=== PATIENT | female | born 1935 | race African-American/Black ===

== ENCOUNTER 2017-12-13 08:47 | Emergency (ER) | payer MEDICARE, MEDICAID ==
[2017-12-13] MEDS ORDERED: ACETAMINOPHEN 325 MG TABLET PO ONE (08:58)
--- NOTE | 2017-12-13 09:17 | ER Document Report ---
ED General - General Chief Complaint: Leg Pain Stated Complaint: WEAKNESS Time Seen by Provider: 12/13/17 09:17 TRAVEL OUTSIDE OF THE [place] IN LAST 30 DAYS: No - Related Data Allergies/Adverse Reactions: No Known Allergies Allergy (Verified 03/20/15 13:55) Past Medical History - Social History Family History: Reviewed & Not Pertinent - Past Medical History Cardiac Medical History: Reports: Hx Hypercholesterolemia, Hx Hypertension - meds > 5 years Denies: Hx Coronary Artery Disease, Hx Heart Attack Pulmonary Medical History: Denies: Hx Asthma, Hx Bronchitis, Hx COPD, Hx Pneumonia, Hx Tuberculosis Neurological Medical History: Denies: Hx Cerebrovascular Accident, Hx Seizures Endocrine Medical History: Reports: Hx Diabetes Mellitus Type 2 Renal/ Medical History: Reports: Hx End Stage Renal Disease, Hx Hemodialysis GI Medical History: Musculoskeletal Medical History: Denies Hx Arthritis Psychiatric Medical History: Reports: Hx Dementia Denies: Hx Depression Infectious Medical History: Past Surgical History: Reports: Hx Hysterectomy. Denies: Hx Pacemaker - Immunizations Hx Diphtheria, Pertussis, Tetanus Vaccination: Yes - pt unsure Physical Exam - Vital signs Vitals: Temp Pulse Resp BP Pulse Ox 98.3 F 60 18 180/79 H 100 12/13/17 08:47 12/13/17 08:47 12/13/17 08:47 12/13/17 08:47 12/13/17 08:47 Course - Vital Signs Vital signs: Temp Pulse Resp BP Pulse Ox 98.3 F 60 18 180/79 H 100 12/13/17 08:47 12/13/17 08:47 12/13/17 08:47 12/13/17 08:47 12/13/17 08:47 Discharge - Discharge Referrals: JESUS BETANCOURT MD [Primary Care Provider] - Follow up as needed
--- NOTE | 2017-12-13 09:59 | RADIOLOGY REPORT (SQ) ---
EXAM DESCRIPTION: FEMUR RIGHT COMPLETED DATE/TIME: 12/13/2017 9:43 am REASON FOR STUDY: pain; difficulty ambulating COMPARISON: None. NUMBER OF VIEWS: Two views. TECHNIQUE: Two radiographic images acquired of the right femur to include hip and knee in at least o ne projection. LIMITATIONS: None. FINDINGS: MINERALIZATION: Normal. BONES: No acute fracture or dislocation. No worrisome bone lesions. No significant osteophytes. SOFT TISSUES: No obvious swelling or foreign body. OTHER: Vascular calcification IMPRESSION: NEGATIVE STUDY OF THE RIGHT FEMUR. NO EXPLANATION FOR PAIN. TECHNICAL DOCUMENTATION: JOB ID: [id number] Location [facility]- All Rights Reserved Reading location - IP/workstation name: [email or web address]
--- NOTE | 2017-12-13 10:05 | ER Document Report ---
HPI - HPI Patient complains to provider of: Right knee pain Onset: Other Onset/Duration: Sudden, Persistent Quality of pain: No pain Pain Level: Denies Context: Patient presents to the emergency department from [facility] for complaints of right knee pain. An x-ray was done at the [facility] yesterday. A suspected lateral distal femur was noted. The [facility] could not get an Ortho consult so she was sent here. No other c/o. Patient is very pleasant, oriented to name. Associated Symptoms: None Exacerbated by: Walking Relieved by: Denies Similar symptoms previously: No Recently seen / treated by doctor: No - REPRODUCTIVE Reproductive: DENIES: : - DERM Skin Color: Normal Past Medical History - General Information source: Patient, Outside Facility Records Cannot obtain history due to: Dementia - Social History Smoking Status: Unknown if Ever Smoked Cigarette use (# per day): No Frequency of alcohol use: None Drug Abuse: None Lives with: [facility] Family History: Reviewed & Not Pertinent Patient has suicidal ideation: No Patient has homicidal ideation: No - Past Medical History Cardiac Medical History: Reports: Hx Hypercholesterolemia, Hx Hypertension - meds > 5 years Denies: Hx Coronary Artery Disease, Hx Heart Attack Pulmonary Medical History: Denies: Hx Asthma, Hx Bronchitis, Hx COPD, Hx Pneumonia, Hx Tuberculosis Neurological Medical History: Denies: Hx Cerebrovascular Accident, Hx Seizures Endocrine Medical History: Reports: Hx Diabetes Mellitus Type 2 Renal/ Medical History: Reports: Hx End Stage Renal Disease, Hx Hemodialysis. Denies: Hx Peritoneal Dialysis GI Medical History: Musculoskeletal Medical History: Reports Hx Arthritis Psychiatric Medical History: Reports: Hx Dementia Denies: Hx Depression Infectious Medical History: Past Surgical History: Reports: Hx Hysterectomy. Denies: Hx Pacemaker - Immunizations Hx Diphtheria, Pertussis, Tetanus Vaccination: Yes - pt unsure Vertical Provider Document - CONSTITUTIONAL Agree With Documented VS: Yes Exam Limitations: No Limitations General Appearance: WD/WN, No Apparent Distress - INFECTION CONTROL TRAVEL OUTSIDE OF THE [place] IN LAST 30 DAYS: No - HEENT HEENT: Atraumatic, Normocephalic - NECK Neck: Supple - RESPIRATORY Respiratory: No Respiratory Distress - CARDIOVASCULAR Cardiovascular: Regular Rate - MUSCULOSKELETAL/EXTREMETIES Musculoskeletal/Extremeties: MAEW, FROM, Non-Tender - No obvious deformity no swelling no erythema no warmth patient has full range of motion denies pain upon palpation or with movement. - NEURO Level of Consciousness: Awake, Alert Motor/Sensory: No Motor Deficit - DERM Integumentary: Warm, Dry Course - Re-evaluation Re-evalutation: 12/13/17 10:02 X-ray tech reports patient stood up without any problems. 12/13/17 10:08 Patient complained of a BM. Full range of motion no complaints of pain 12/13/17 12:58 patient still here, waiting for transport back to [facility] - Vital Signs Vital signs: Temp Pulse Resp BP Pulse Ox 98.3 F 60 18 180/79 H 100 12/13/17 08:47 12/13/17 08:47 12/13/17 08:47 12/13/17 08:47 12/13/17 08:47 - Diagnostic Test Radiology reviewed: Image reviewed, Reports reviewed - EXAM DESCRIPTION: FEMUR RIGHT COMPLETED DATE/TIME: 12/13/2017 9:43 am REASON FOR STUDY: pain; difficulty ambulating COMPARISON: None. NUMBER OF VIEWS: Two views. TECHNIQUE: Two radiographic images acquired of the right femur to include hip and knee in at least one projection. LIMITATIONS: None. FINDINGS: MINERALIZATION: Normal. BONES: No acute fracture or dislocation. No worrisome bone lesions. No significant osteophytes. SOFT TISSUES: No obvious swelling or foreign body. OTHER: Vascular calcification IMPRESSION: NEGATIVE STUDY OF THE RIGHT FEMUR. NO EXPLANATION FOR PAIN. Discharge - Discharge Clinical Impression: Right knee pain Qualifiers: Chronicity: acute Qualified Code(s): M25.561 - Pain in right knee Condition: Stable Disposition: HOME-SNF (ED ONLY) Additional Instructions: *You have been evaluated for right knee pain, suspected femur fracture *Rest/Ice/Elevate *Follow up with orthopedics for recheck within one week *Take tylenol as indicated for pain *Return to ED for worsening condition, changes, needs Monitor your blood pressure. Your blood pressure was elevated today. This may be because you were anxious, in pain or because you need medication. It is important to follow up with your primary care provider for full evaluation. Forms: Elevated Blood Pressure Referrals: JESUS BETANCOURT MD [Primary Care Provider] - Follow up in 3-5 days
[2017-12-13 17:14] VITALS: BP 183/60
== END 2017-12-13 17:16 ==
LOC: ER 08:47
DX: M25.561 Pain in right knee (principal); F03.90 Unspecified dementia, unspecified severity, without behavioral disturbance, psychotic disturbance, mood disturbance, and anxiety; I10 Essential (primary) hypertension; Z79.899 Other long term (current) drug therapy; E11.9 Type 2 diabetes mellitus without complications
CPT/HCPCS: 99284; 73552; A9270

== ENCOUNTER 2018-06-29 13:49 | Emergency (ER) | payer MEDICARE, MEDICAID ==
--- NOTE | 2018-06-29 14:22 | ER Document Report ---
ED Medical Screen (RME) - General Chief Complaint: Nausea/Vomiting Stated Complaint: NAUSEA Time Seen by Provider: 06/29/18 14:20 Primary Care Provider: Abhijit BAE MD [Primary Care Provider] - Follow up as needed Information source: Patient, Transfer Record Notes: This is an 82-year-old female brought to the emergency room by ambulance because of nausea and vomiting for 3 days at the [facility] ([place]). Patient is sitting up in the wheelchair and states she feels fine. She denies any nausea vomiting. She denies any abdominal pain. She would like to go back home. TRAVEL OUTSIDE OF THE [place] IN LAST 30 DAYS: No - HPI Onset: Last week Onset/Duration: Gradual Quality of pain: No pain Severity: None Pain Level: Denies Associated Symptoms: None Exacerbated by: Denies Relieved by: Denies Similar symptoms previously: No Recently seen / treated by doctor: Yes - Related Data Smoking: Non-smoker Frequency of alcohol use: None Drug Abuse: None Allergies/Adverse Reactions: No Known Allergies Allergy (Verified 03/20/15 13:55) Past Medical History - General Information source: Patient - Social History Cigarette use (# per day): No Chew tobacco use (# tins/day): No Frequency of alcohol use: None Drug Abuse: None Lives with: [facility]-Term Family history: None - Past Medical History Cardiac Medical History: Reports: Hx Hypercholesterolemia, Hx Hypertension - meds > 5 years Denies: Hx Coronary Artery Disease, Hx Heart Attack Pulmonary Medical History: Denies: Hx Asthma, Hx Bronchitis, Hx COPD, Hx Pneumonia, Hx Tuberculosis Neurological Medical History: Denies: Hx Cerebrovascular Accident, Hx Seizures Endocrine Medical History: Reports: Hx Diabetes Mellitus Type 2 Renal/ Medical History: Reports: Hx End Stage Renal Disease, Hx Hemodialysis. Denies: Hx Peritoneal Dialysis GI Medical History: Musculoskeltal Medical History: Reports Hx Arthritis Psychiatric Medical History: Reports: Hx Dementia Denies: Hx Depression Infectious Medical History: Past Surgical History: Reports: Hx Hysterectomy. Denies: Hx Pacemaker - Immunizations Hx Diphtheria, Pertussis, Tetanus Vaccination: Yes - pt unsure Review of Systems - Review of Systems Constitutional: denies: Chills, Fever EENT: No symptoms reported Cardiovascular: denies: Chest pain, Palpitations, Heart racing Respiratory: No symptoms reported Gastrointestinal: See HPI Genitourinary: No symptoms reported Female Genitourinary: No symptoms reported Musculoskeletal: No symptoms reported Skin: No symptoms reported Hematologic/Lymphatic: No symptoms reported Neurological/Psychological: No symptoms reported Physical Exam - Vital signs Vitals: Temp Pulse Resp BP Pulse Ox 97.5 F 71 16 173/53 H 95 06/29/18 14:00 06/29/18 14:00 06/29/18 14:00 06/29/18 14:00 06/29/18 14:00 Notes: Physical exam: GENERAL: Pleasant 82-year-old woman, she is alert, she does have dementia, she is in no acute distress. HEAD: Atraumatic, normocephalic. EYES: Pupils equal round and reactive to light, extraocular movements intact, sclera anicteric, conjunctiva are normal. ENT: Oropharynx clear without exudates. Moist mucous membranes. NECK: Normal range of motion, supple without obvious mass LUNGS: Breath sounds clear to auscultation bilaterally and equal. No wheezes rales or rhonchi. HEART: Regular rate and rhythm without murmurs, rubs or gallops. ABDOMEN: Soft, normoactive bowel sounds. No tenderness to palpation. No guarding, no rebound. No masses appreciated. EXTREMITIES: Right upper extremity shunt: Good thrill. Normal range of motion, no pitting or edema. No clubbing or cyanosis. NEUROLOGICAL: Cranial nerves II through XII grossly intact. Normal speech, moving all extremities. PSYCH: Filing and alert, no acute distress. SKIN: Warm, Dry, normal turgor, no rashes or lesions noted. Course - Re-evaluation Re-evalutation: 06/29/18 16:34 This is a pleasant 82-year-old female with dementia who is sent in for 3 days of vomiting. We did try and get some blood work on her and she absolutely refused on 2 occasions and would fight us. Given that she had not had any vomiting during this evaluation, we decided to observe her in the emergency room for an extended period of time. Patient did eat and she has done well. She has had no vomiting. She is ambulating around the pit area with a big smile on her face. The plan will be for discharge back to [facility]. - Vital Signs Vital signs: Temp Pulse Resp BP Pulse Ox 97.5 F 71 16 173/53 H 95 06/29/18 14:00 06/29/18 14:00 06/29/18 14:00 06/29/18 14:00 06/29/18 14:00 Doctor's Discharge - Discharge Clinical Impression: Vomiting resolved Condition: Stable Disposition: HOME, SELF-CARE Additional Instructions: Recommendations: Continue current medicines. No restrictions on activity Follow-up with primary care doctor Return to the emergency room for any problems. Referrals: Abhijit BAE MD [Primary Care Provider] - Follow up as needed
[2018-06-29 17:22] VITALS: BP 172/57
== END 2018-06-29 17:05 | disposition home or self-care (01) ==
LOC: ER 13:49
DX: R11.2 Nausea with vomiting, unspecified (principal); E78.00 Pure hypercholesterolemia, unspecified; E11.22 Type 2 diabetes mellitus with diabetic chronic kidney disease; I12.0 Hypertensive chronic kidney disease with stage 5 chronic kidney disease or end stage renal disease; N18.6 End stage renal disease; Z99.2 Dependence on renal dialysis
CPT/HCPCS: 99283